=== PATIENT | female | born 1985 | race Caucasian/White ===

== ENCOUNTER → 2016-12-01 | Outpatient (CLI) | payer OTHER ==
[~2016-12-01] MED LIST: IBUP80TA PO; PRENTAB9 PO
[2016-12-01 19:56] LABS: ALKALINE PHOSPHATASE 44 U/L (45-117); ALT/SGPT 17 U/L (12-78); ANION GAP 8 MEQ/L (8-16); AST/SGOT 10 U/L (15-37); BILIRUBIN,TOTAL 0.8 MG/DL (0.2-1.0); BLOOD UREA NITROGEN 16 MG/DL (7-18); CALCIUM LEVEL 8.8 MG/DL (8.5-10.1); CARBON DIOXIDE LEVEL 27 MEQ/L (21-32); CHLORIDE LEVEL 109 MEQ/L (98-107); CHOLESTEROL LEVEL 200 MG/DL (<200); CREATININE FOR GFR 0.87 MG/DL (0.55-1.02); FREE T4 1.11 NG/DL (0.76-1.46); GLOMERULAR FILTRATION RATE > 60.0 (>60); GLUCOSE, FASTING 85 MG/DL (70-105); POTASSIUM SERUM 4.2 MEQ/L (3.5-5.1); SODIUM LEVEL 144 MEQ/L (136-145); TOTAL PROTEIN 6.5 GM/DL (6.4-8.2); TRIGLYCERIDES LEVEL 51 MG/DL (<150)
== END ==
LOC: M WUC 09:01
PROVIDERS: ATTEND Nurse Practitioner Family
DX: E03.9 Hypothyroidism, unspecified (principal); E78.4 Other hyperlipidemia

== ENCOUNTER → 2017-04-24 | Outpatient (CLI) | payer OTHER ==
[2017-04-24 19:58] LABS: THYROID PEROXIDASE ANTIBODY > 1300.0 U/ML (<60.0)
[2017-04-24 20:00] LABS: FREE T4 1.07 NG/DL (0.76-1.46)
== END ==
LOC: M WUC 15:38
PROVIDERS: ATTEND Nurse Practitioner Family
DX: E03.9 Hypothyroidism, unspecified (principal)

== ENCOUNTER → 2017-09-27 | Outpatient (CLI) | payer OTHER ==
[2017-09-27 18:16] LABS: ALBUMIN 4.3 GM/DL (3.2-5.2); ALBUMIN/GLOBULIN RATIO 1.34 (1.00-1.93); ALKALINE PHOSPHATASE 54 U/L (45-117); ALT/SGPT 26 U/L (12-78); ANION GAP 7 MEQ/L (8-16); AST/SGOT 22 U/L (7-37); BILIRUBIN,TOTAL 0.7 MG/DL (0.2-1.0); BLOOD UREA NITROGEN 11 MG/DL (7-18); CALCIUM LEVEL 9.3 MG/DL (8.5-10.1); CARBON DIOXIDE LEVEL 29 MEQ/L (21-32); CHLORIDE LEVEL 104 MEQ/L (98-107); CREATININE FOR GFR 0.86 MG/DL (0.55-1.02); FREE T4 1.15 NG/DL (0.76-1.46); GLOMERULAR FILTRATION RATE > 60.0 (>60); GLUCOSE, FASTING 82 MG/DL (70-105); SODIUM LEVEL 140 MEQ/L (136-145); TOTAL PROTEIN 7.5 GM/DL (6.4-8.2)
== END ==
LOC: M SMT 11:32
PROVIDERS: ATTEND Physician Assistant Medical
DX: E03.9 Hypothyroidism, unspecified (principal)

== ENCOUNTER → 2017-11-26 | Outpatient (CLI) | payer OTHER ==
[2017-11-26 20:56] LABS: FREE T4 1.08 NG/DL (0.76-1.46); THYROID STIMULATING HORMONE 0.789 uIU/ML (0.358-3.740)
== END ==
LOC: M LAB 17:24
DX: E03.9 Hypothyroidism, unspecified (principal)

== ENCOUNTER → 2018-01-18 | Outpatient (REF) | payer OTHER | LOC: M LAB REF 10:55 | DX: J02.9 Acute pharyngitis, unspecified (principal) | CPT/HCPCS: 87430 ==

== ENCOUNTER → 2019-01-23 | Outpatient (REF) | payer OTHER ==
[2019-01-23 16:56] LABS: BASO # 0.1 10^3/uL (0.0-0.2); BASO % 0.9 % (0.0-1.0); EOS # 0.2 10^3/uL (0.0-0.50); EOS % 3.7 % (0.0-3.0); HEMATOCRIT 37.5 % (36.0-47.0); HEMOGLOBIN 12.9 g/dl (12.0-15.5); LYMPH # 1.6 10^3/uL (1.5-4.5); LYMPH % 28.5 % (24.0-44.0); MEAN CORPUSCULAR HEMOGLOBIN 31.8 pg (27.0-33.0); MEAN CORPUSCULAR HGB CONC 34.4 g/dl (32.0-36.5); MEAN CORPUSCULAR VOLUME 92.4 fl (80.0-96.0); MONO # 0.4 10^3/uL (0.0-0.8); MONO % 6.9 % (0.0-5.0); NEUTROPHILS # 3.4 10^3/uL (1.8-7.7); NEUTROPHILS % 59.8 % (36.0-66.0); PLATELET COUNT, AUTOMATED 195 10^3/uL (150-450); RED BLOOD COUNT 4.06 10^6/uL (4.00-5.40); WHITE BLOOD COUNT 5.6 10^3/uL (4.0-10.0)
[2019-01-23 16:59] LABS: MONO REFLEX EBV COMP NEGATIVE (NEGATIVE)
[2019-01-23 17:08] LABS: ALBUMIN 3.9 GM/DL (3.2-5.2); ALT/SGPT 20 U/L (12-78); BILIRUBIN,TOTAL 0.7 MG/DL (0.2-1.0); BLOOD UREA NITROGEN 12 MG/DL (7-18); CALCIUM LEVEL 8.8 MG/DL (8.5-10.1); CARBON DIOXIDE LEVEL 26 MEQ/L (21-32); CHLORIDE LEVEL 107 MEQ/L (98-107); CREATININE FOR GFR 0.79 MG/DL (0.55-1.30); FREE T4 1.06 NG/DL (0.76-1.46); GLOMERULAR FILTRATION RATE > 60.0 (>60); GLUCOSE, FASTING 84 MG/DL (70-100); POTASSIUM SERUM 3.8 MEQ/L (3.5-5.1); SODIUM LEVEL 142 MEQ/L (136-145); TOTAL PROTEIN 6.7 GM/DL (6.4-8.2)
[2019-01-26 20:22] LABS: FREE T3 2.7 PG/ML (2.2-4.0)
[2019-01-27 00:07] LABS: EBV AB TO NUCLEAR ANTIGEN 70.6 U/mL (0.0-17.9); EBV VIRAL CAPSID AG IgG 81.3 U/mL (0.0-17.9); EBV VIRAL CAPSID AG IgM <36.0 U/mL (0.0-35.9)
== END ==
LOC: M LABDRAW1 15:43
PROVIDERS: ATTEND Family Medicine
DX: J02.9 Acute pharyngitis, unspecified (principal); E03.9 Hypothyroidism, unspecified

== ENCOUNTER → 2019-04-19 | Outpatient (REF) | payer OTHER | LOC: M LAB REF 10:19 | PROVIDERS: ATTEND Physician Assistant | DX: J02.9 Acute pharyngitis, unspecified (principal) ==

== ENCOUNTER 2019-05-26 08:43 | Inpatient (IN) | payer OTHER ==
[~2019-05-26] VITALS: Ht 160 cm; Wt 64.6 kg
[2019-05-26] MEDS ORDERED: diazePAM 5 MG TAB PO ONE ×2 (09:45→15:45)
[2019-05-26] MEDS ORDERED: GABAPENTIN 300 MG CAP PO ONE (09:45)
[2019-05-26] MEDS ORDERED: NORCO, ANEXSIA 5/325MG TABLET (HYDROcodone/ACETAMINOPHEN) PO ONE (17:45)
--- NOTE | 2019-05-26 17:47 | REP ---
MRI lumbar spine without contrast: History: Saddle anesthesia. Comparison CT study of the lumbar spine is from February 12, 2006. Technique: Sagittal and axial T1 and T2-weighted scans are acquired in the usual fashion with and without fat saturation. Sequences include spin echo, turbo spin-echo, and STIR imaging sequences. MRI findings: Lumbar vertebral body heights are preserved. Alignment is normal. As observed on this CT study, there is a unilateral spondylolysis on the right at L5 and the unilateral spondylolysis on the left at L4. This is unchanged from the comparison CT study in 2005. There is no evidence of spondylolisthesis. Pedicles and posterior elements are otherwise intact. The tip of the conus medullaris is normal in position and appearance at L1. No extra vertebral abnormality is observed. At the L1-2 intervertebral disc level, there is low T1, low T2 signal intensity within the L1-2 disc consistent with intervertebral disc calcification. There is a right posterior focal disc protrusion at L1-L2 with caudal extension. This compresses the right ventral margin of the thecal sac. The disc protrusion shows low T1 and low T2 signal intensity as well and may contain some calcification. This appears to be a new finding. At the L2-3 disc, there is no evidence of disc protrusion, central canal stenosis or neural foraminal narrowing. At L3-4, there is some degenerative narrowing of the disc and mild diffuse central disc bulging is seen indenting the ventral margin of the sac. No central canal stenosis is seen. No neural foraminal compromise is noted. At L4-5, there is no evidence of disc protrusion. There is mild facet hypertrophy, greatest on the right. No neural foraminal narrowing is seen. At L5-S1, there is degenerative narrowing of the disc and there are reactive marrow changes on either side of the degenerated L5-S1 disc. Mild diffuse disc bulging is present. There is no focal disc protrusion or central canal stenosis. Facet hypertrophy is noted bilaterally at L5-S1. Impression: 1. Right posterior focal disc protrusion with caudal extension at L1-L2. 2. Diffuse disc bulging at L3-4, mild in degree. 3. Unilateral right L5 and left L4 pars defects without spondylolisthesis. This is unchanged from the [address] study. 4. Degenerative disc disease with reactive marrow changes at the L5-S1. 5. No evidence of central canal stenosis or neural foraminal narrowing. Electronically Signed by Mario Bryan MD 05/26/2019 07:28 P
[2019-05-26] MEDS ORDERED: IBUP200T45 PO (19:45)
[2019-05-26] MEDS ORDERED: PRED20TA PO (19:45)
[2019-05-26] MEDS ORDERED: FLUO10CA15 PO (19:47)
[2019-05-26] MEDS ORDERED: NEUR100C PO (19:47)
[2019-05-26] MEDS ORDERED: LEVO88TA3 PO (19:47)
--- NOTE | 2019-05-26 20:54 | HPEPDOC ---
General Date of Admission 05.26.19 Date of Service: May 26, 2019 Chief Complaint The patient is a 33-year-old female admitted with a reason for visit of Leg Pain And Numbness. History of Present Illness 33f with hx of pcos, hypothyroid, remote eating disorder, who presents numbness. Two days ago she started noticing numbness and parasthesias on her left lateral thigh. This numbness then moved to her vagina, anus, and perineum. Yesterday she noticed the numbness had spread to include the entire posterior side of her right leg and all of her toes. She denies any weakness, fevers, weight loss, or incontinence. She has noted the feeling like she is not emptying her bladder when she voids and the sensation like she has to void, but then cant. She has trouble standing on her right leg as she describes no sensation of the floor at all. She recalls She injured her back several times in the past most recently a month ago. She was recently started on prozac for anxiety. She has no back pain currently. She denies any provoking factors and notes the symptoms have waxed and waned over the past two days seemingly better in the am and worse throughout the day. Home Medications Scheduled Fluoxetine Hcl (Fluoxetine HCl) 10 Mg Capsule, 10 MG PO QHS, (Reported) Gabapentin (Neurontin) 100 Mg Capsule, 100 MG PO QID, (Reported) PATIENT STATES SHE HAS NOT STARTED. RX STILL AT PHARMACY. Levothyroxine Sodium (Levothyroxine Sodium) 88 Mcg Tablet, 88 MCG PO DAILY, (Reported) 1/2 HOUR BEFORE BREAKFAST Prednisone (Prednisone) 20 Mg Tablet, 40 MG PO DAILY, (Reported) TO TAKE X 5 DAYS Scheduled PRN Ibuprofen (Ibu-200) 200 Mg Tablet, 400 MG PO Q6H PRN for PAIN, (Reported) Allergies Coded Allergies: Penicillins (Verified Allergy, Intermediate, HIVES, RASH, 05/26/19) SEASONAL ALLERGIES (Verified Allergy, Unknown, 09/29/09) Sulfa (Sulfonamide Antibiotics) (Verified Adverse Reaction, Mild, VOMITING, 05/26/19) TAPE (Verified Adverse Reaction, Mild, BANDAIDS-SENSITIVE, 05/26/19) Past Medical History Medical History hypothyroid, pcos Surgical History denies Family History Significant Family History: No pertinent family hx Social History * Smoker: Denies Alcohol: Denies Drugs: denies Psychosocial History: Anxiety A-FIB/CHADSVASC A-FIB History Current/History of A-Fib/PAF?: No Current PO Anticoag Therapy: No Age/Risk Factor Scoring CHADSVASC: CHADSVASC Response (Comments) Value Age Risk Factor Age < 65 years old 0 Gender Risk Factor Female 1 Hx of CHF No 0 Hx of HTN No 0 Hx of Stroke/TIA/or VTE No 0 Hx of Diabetes No 0 Hx of Vascular Disease No 0 Total 1 Review of Systems Constitutional: Denies: Chills, Fever, Night Sweats Eyes: Denies: Pain, Vision change ENT: Denies: Head Aches, Ear Pain, Dysphagia Skin: Denies: Rash, Lesions, Breakdown Pulmonary: Denies: Dyspnea, Cough Cardiovascular: Denies: Chest Pain, Palpitations, Orthopnea, Paroxysmal Noc. Dyspnea, Lt Headedness Gastrointestinal: Denies: Nausea, Vomiting, Abdominal Pain, Diarrhea Genitourinary: Reports: Other Symptoms (hesitation) Hematologic: Denies: Bruising, Bleeding Excessively Musculoskeletal: Denies: Neck Pain, Back Pain, Joint Pain, Muscle Pain, Spasms Neurological: Reports: Numbness Psych: Reports: Anxiety Physical Examination General Exam: Positive: Alert, No Acute Distress Eye Exam: Positive: PERRLA, Conjunctiva & lids normal, EOMI; Negative: Sclera icteric ENT Exam: Positive: Atraumatic, Mucous membr. moist/pink, Pharynx Normal Neck Exam: Positive: Supple; Negative: JVD, thyromegaly Chest Exam: Positive: Clear to auscultation, Normal air movement Heart Exam: Positive: Rate Normal, Regular Rhythm, Normal S1, Normal S2; Negative: Murmurs, Rubs Abdomen Exam: Positive: Normal bowel sounds, Soft; Negative: Tenderness, Hepatospenomegaly Extremity Exam: Positive: Normal pulses; Negative: Clubbing, Cyanosis, Edema Skin Exam: Positive: Nl turgor and temperature; Negative: Breakdown, Lesion Neuro Exam: Positive: Normal Gait, Normal Speech, Strength at 5/5 X4 ext, Normal Tone, Other (able to feel touch in right leg, foot, all toes, however decreased sensation, proprioception intact); Negative: Sensation Intact Psych Exam: Positive: Mental status NL, Mood NL, Oriented x 3 Other physical findings bladder scan 0 Vital Signs Vital Signs Date Time Temp Pulse Resp B/P (MAP) Pulse Ox O2 Delivery O2 Flow Rate FiO2 05/26/19 20:18 98.8 61 18 114/73 (87) 100 Room Air Laboratory Data Labs 24H Laboratory Tests 2 05/26/19 09:53: POC Beta HCG, Quantitative < 5.0 05/26/19 10:05: POC Glucose (Misc Panel) 104, POC Sodium (Misc Panel) 143, POC Potassium (Misc Panel) 3.8, POC Chloride (Misc Panel) 105, POC Total CO2 (Misc Panel) 25.0, POC Blood Urea Nitrogen (Misc Panel 10, POC Ionized Calcium (Misc Panel) 5.1, POC Creatinine (Misc Panel) 0.7, POC Hematocrit (Misc Panel) 42.0 Assessment/Plan 33f with saddle and leg anesthesia and paraesthesias Started on prednisone and neurontin yesterday will continue MRI without evidence of cauda equina does have evidence of degenerative disc disease Orthopedics consulted by ED neurochecks unclear etiology at this time if not felt to be disc related may need neuro work up for demyelinating disease anxiety continue prozac prn xanax hypothyroid stable continue synthroid Plan / VTE VTE Prophylaxis Ordered?: Yes ILDEFONSO MOTA MD May 26, 2019 20:54
[2019-05-26] MEDS: FLUoxetine 10 MG CAP PO SCH (21:30)
[2019-05-26] MEDS: GABAPENTIN 100 MG CAP PO SCH (21:30)
[2019-05-26 22:20] VITALS: BP 124/67
[2019-05-26] MEDS: ALPRAZolam 0.25 MG TAB PO PRN (23:15)
--- NOTE | 2019-05-26 23:33 | CR ---
DATE: 05/26/2019 CHIEF COMPLAINT: Back pain and thigh numbness. HISTORY OF PRESENT ILLNESS: This 33-year-old female has a 2-day history of increasing lower back pain and numbness. This feels like an odd sensation change in the feeling of her left upper thigh that started about 2 days ago. She does describe it as a numbness. She feels like she was "sitting on pool noodle" or at the edge of the pool, which she attributed this initially to her leg falling asleep. She feels like she took some time off, did not walk her dog as usual and then it got a little bit better. However, the next day, she did try to do more activities and feels like it got quite a bit worse to the point where it more in the right thigh numbness and associated with some numbness in her vaginal area. She also does describe an episode about 2 months ago where she hurt her lower back. She works as a teacher at [employer]. She feels like it got better over about a month, and she did have an adjustment by a DO. She has not had any loss of control of bowel or bladder, overflow urinary incontinence or inability to feel around her perianal region. She feels like there is a little bit of weakness and odd sensations to her right lower extremity now. Her upper extremities are strong and normal. She has not had any constitutional symptoms such as fever, chills, weight loss, sudden night sweats or any other problems with appetite or problems with other systems. PAST MEDICAL HISTORY: Includes: 1. Polycystic ovary syndrome (PCOS). 2. Hypothyroid. 3. Anxiety. MEDICATIONS: Include a recent course of prednisone, chronic, 88 mg, levothyroxine, fluoxetine 10 mg once daily, alprazolam 0.25 mg for anxiety. ALLERGIES: PENICILLIN, SEASONAL ALLERGIES, SULFA ANTIBIOTICS and TAPE. SURGICAL HISTORY: Nil. SOCIAL HISTORY: She works as a teacher at [employer]. She is a nonsmoker. She does consume alcohol, but she does not use street drugs. PHYSICAL EXAMINATION: Vital signs are stable. Temperature is 98.8. Blood pressure 114/73. Pulse rate 61. Respiratory rate 18. 100% on room air. She is alert and oriented times three. She is quite pleasant, easy to interact with. She is lying supine on the examining room bed. She is here with her significant other. Her upper extremities reveal no evidence of clonus. There is strong C5-T1 with normal sensations. Strength 5/5 in all nerve roots. Sensations are normal 2/2. Inspection of her thoracolumbar spine reveals no evidence of overlying redness, swelling, ecchymosis or deformity. There are no steps or gaps on palpation. Minimal pain to palpation in the midline or off either side on the spinal muscles. She had slight diffuse decreased strength in her right lower extremity 4+/5 from L2-S1. 5/5 on the left side L2-S1. Decreased sensation altered 1/2 from L2-S1 throughout the right lower extremity but normal in the left lower extremity. Negative straight leg raise test on both sides. Negative femoral nerve stretch test on the right side. Full hip range of motion. Strong pedal pulses. Plantars downgoing bilaterally. She did have 4 or 5 beats of clonus bilaterally. Reflexes a little brisk but overall 2+ and symmetric at the knees and ankles. Normal perianal sensation to light touch and pinprick. Normal rectal tone. Positive deep anal pressure. I had the emergency room physician toe closing machine tender during the examination. MRI was reviewed of her lumbar spine: This demonstrates at the L1-L2 intervertebral disc level right posterior focal disc protrusion with caudal extension. This compresses the right ventral margin of the cul-de-sac. This disc protrusion shows low T1 and low T2 signal intensity, may contain some calcification. This appears to be a new finding compared to a CT study of the lumbar spine from January 2006. There is also diffuse disc bulge at L3-L4, mild in degree. Unilateral right L5 and left L4 pars defects without spondylolisthesis, unchanged from 2006. There is degenerative disc disease, reactive marrow changes L5-S1. No evidence of central canal stenosis or neural foraminal narrowing. I see no evidence of a cord signal change. ASSESSMENT/PLAN: This 33-year-old female with right L1-L2 disc protrusion, which does appear to be causing some neurologic symptoms, right lower extremity. In the absence of cauda equina findings, treatment for this would be admit to the hospital under the semiconductor engineer with pain service consultation, probable pain control with gabapentin and Toradol if her renal function is normal. Office followup with a spine surgeon in 2-3 weeks. I reviewed this consult with Dr. Clark, the spine surgeon, and he agrees with the management. I also communicated the findings to the emergency room physician who was helping coordinate her care. We will monitor her neurologic status as well and help her mobilize appropriately.
[2019-05-27 06:00] VITALS: BP 117/67
[2019-05-27 06:12] LABS: BASO # 0.1 10^3/uL (0.0-0.2); BASO % 1.2 % (0.0-1.0); EOS # 0.3 10^3/uL (0.0-0.50); EOS % 4.3 % (0.0-3.0); HEMATOCRIT 39.6 % (36.0-47.0); HEMOGLOBIN 13.2 g/dl (12.0-15.5); LYMPH # 2.5 10^3/uL (1.5-4.5); LYMPH % 43.5 % (24.0-44.0); MEAN CORPUSCULAR HEMOGLOBIN 30.9 pg (27.0-33.0); MEAN CORPUSCULAR HGB CONC 33.3 g/dl (32.0-36.5); MEAN CORPUSCULAR VOLUME 92.7 fl (80.0-96.0); MONO # 0.3 10^3/uL (0.0-0.8); MONO % 5.7 % (0.0-5.0); NEUTROPHILS # 2.6 10^3/uL (1.8-7.7); NEUTROPHILS % 45.1 % (36.0-66.0); PLATELET COUNT, AUTOMATED 176 10^3/uL (150-450); RED BLOOD COUNT 4.27 10^6/uL (4.00-5.40); WHITE BLOOD COUNT 5.8 10^3/uL (4.0-10.0)
[2019-05-27 06:24] LABS: INR 1.08; PROTHROMBIN TIME 13.7 SECONDS (11.8-14.0)
[2019-05-27 06:25] LABS: PARTIAL THROMBOPLASTIN TIME 29.7 SECONDS (25.0-38.4)
[2019-05-27] MEDS: LEVOTHYROXINE 88MCG TABLET (0.088 MG) PO SCH (06:34)
[2019-05-27 06:56] LABS: ERYTHROCYTE SEDIMENTATION RATE 4 mm/hr (0-20)
[2019-05-27 07:00] LABS: ALBUMIN 3.7 GM/DL (3.2-5.2); ALT/SGPT 20 U/L (12-78); BILIRUBIN,TOTAL 1.1 MG/DL (0.2-1.0); BLOOD UREA NITROGEN 13 MG/DL (7-18); CALCIUM LEVEL 8.2 MG/DL (8.5-10.1); CARBON DIOXIDE LEVEL 29 MEQ/L (21-32); CHLORIDE LEVEL 106 MEQ/L (98-107); CREATININE FOR GFR 0.93 MG/DL (0.55-1.30); GLOMERULAR FILTRATION RATE > 60.0 (>60); GLUCOSE, FASTING 120 MG/DL (70-100); POTASSIUM SERUM 3.6 MEQ/L (3.5-5.1); SODIUM LEVEL 141 MEQ/L (136-145); TOTAL PROTEIN 6.4 GM/DL (6.4-8.2)
[2019-05-27 08:06] LABS: VITAMIN B12 LEVEL 676 PG/ML (247-911)
[2019-05-27] MEDS: predniSONE 20 MG TAB PO SCH (09:03)
[2019-05-27] MEDS: ENOXAPARIN 40 MG/0.4 ML SYRINGE (J1650) SC SCH (09:03)
[2019-05-27 09:05] LABS: C REACTIVE PROTEIN QUANTITATIV < 0.30 MG/DL (0.00-0.30); THYROID STIMULATING HORMONE 0.936 uIU/ML (0.358-3.740)
[2019-05-27] MEDS ORDERED: LORazepam 2 MG/ML VIAL (J2060) IV ONE (10:30)
--- NOTE | 2019-05-27 10:32 | IPNPDOC ---
Date Seen The patient was seen on 05/27/19. Progress Note SUBJECTIVE: Presenting with numbness Patient is a 33-year-old Female with PMHX of hypothyroidism, PCOS, Anxiety, remote eating disorder who presented to the ED with 2 days of numbness and parasthesias. She states that 2 days ago she noticed numbness and parasthesias on her left lateral thigh that spread to her vagina, anus, and perineal region. Yesterday she noticed numbness and a burning sensation to the entire posterior side of her right leg and extended into her toes. She has had trouble standing on her right leg because she is unable to feel the sensation of her foot touching the floor. She states that she has injured her back before in the past but most recently one month ago. She admits that the symptoms are better in the morning and have been waxing and waning over the last two days. She states that she has the urge to void at times but is unable to do so. The patient is examined at the bedside. Patient has an appetite and is eating her breakfast. She is physically upset and crying while providing the history. She denies having any episodes of incontinence, paralysis, or acute pain. Her right leg has decreased sensation that is most noted in the distal 1/2 of her calf and extending into her toes. OBJECTIVE PHYSICAL EXAMINATION: VITAL SIGNS: Please see below. GENERAL: Crying but cooperative and alert HEENT: PERRLA, EOMA, mucosal membranes pink and moist CARDIOVASCULAR: RRR, S1S2 normal. No murmurs, rubs, or gallops noted RESPIRATORY: Clear to auscultation ABDOMINAL: soft and nontender, normal bowel sounds. EXTREMITIES: Pulses 2+ throughout, no cyanosis or clubbing noted. NEUROLOGICAL: CNII-XII intact, muscle strength 4+/5 in RLE L2-S1. muscle strength 5+5 in LLE, RUE, and LUE. Reflexes 2+ B/L. H&P states normal rectal tone and perianal sensation. Pressure sensation and proprioception intact in both lower extremities. Light sensation absent in RLE from distal 1/2 of calf into toes. PSYCHOLOGICAL: AAOx3, anxious LABORATORY DATA, IMAGING STUDIES, MICROBIOLOGY: Please see below. Lumbar spine: Impression: 1. Right posterior focal disc protrusion with caudal extension at L1-L2. 2. Diffuse disc bulging at L3-4, mild in degree. 3. Unilateral right L5 and left L4 pars defects without spondylolisthesis. This is unchanged from the [address] study. 4. Degenerative disc disease with reactive marrow changes at the L5-S1. 5. No evidence of central canal stenosis or neural foraminal narrowing. DVT prophylaxis ordered?: Yes, TEDs and sequentials ASSESSMENT AND PLAN: This is a 33-year-old female with PMHX of hypothyroidism, PCOS, Anxiety, remote eating disorder. PROBLEMS: Numbness and parasthesias. Differential includes: Multiple sclerosis vs unlikely [place]illian [place] vs unlikely SLE vs compressive spinal cord lesions -MRI of Head and Neck; -Neurology has been consulted -Syphilis serology negative -HIV serology negative -Vitamin B12 levels are normal -Lyme titer, MAME serology, Plasma Copper are still pending -Post void residual recorded today Degenerative disc disease -Orthopedics has been consulted -Acetaminophen as needed for pain -prescribed prednisone and gabapentin- began both yesterday Anxiety -Patient was given 1 mg Ativan PCOS Remote eating disorder: -patient on regular diet Hypothyroidism c/w levothyroxine -TSH within normal limits DVT Prophylaxis: TEDs and Sequentials DISPOSITION: Patient is stable and anxious. A head/neck MRI has been scheduled. Neurology has been consulted. Lyme titer, MAME serology, Plasma Copper are still pending I saw and evaluated the patient. I agree with the findings and plan of care as documented in the resident's note VS, I&O, 24H, Fishbone Vital Signs/I&O Vital Signs Date Time Temp Pulse Resp B/P (MAP) Pulse Ox O2 Delivery O2 Flow Rate FiO2 05/27/19 06:00 97.9 63 17 117/67 (84) 99 05/26/19 22:10 Room Air I&O- Last 24 Hours up to 6 AM 05/27/19 06:00 Intake Total 360 ml Output Total 100 ml Balance 260 ml Laboratory Data 24H LABS Laboratory Tests 2 05/26/19 09:53: POC Beta HCG, Quantitative < 5.0 05/26/19 10:05: POC Glucose (Misc Panel) 104, POC Sodium (Misc Panel) 143, POC Potassium (Misc Panel) 3.8, POC Chloride (Misc Panel) 105, POC Total CO2 (Misc Panel) 25.0, POC Blood Urea Nitrogen (Misc Panel 10, POC Ionized Calcium (Misc Panel) 5.1, POC Creatinine (Misc Panel) 0.7, POC Hematocrit (Misc Panel) 42.0 05/27/19 06:00: Immature Granulocyte % (Auto) 0.2, White Blood Count 5.8, Red Blood Count 4.27, Hemoglobin 13.2, Hematocrit 39.6, Mean Corpuscular Volume 92.7, Mean Corpuscular Hemoglobin 30.9, Mean Corpuscular Hemoglobin Concent 33.3, Red Cell Distribution Width 12.9, Platelet Count 176, Neutrophils (%) (Auto) 45.1, Lymphocytes (%) (Auto) 43.5, Monocytes (%) (Auto) 5.7H, Eosinophils (%) (Auto) 4.3H, Basophils (%) (Auto) 1.2H, Neutrophils # (Auto) 2.6, Lymphocytes # (Auto) 2.5, Monocytes # (Auto) 0.3, Eosinophils # (Auto) 0.3, Basophils # (Auto) 0.1, Nucleated Red Blood Cells % (auto) 0.0, Erythrocyte Sedimentation Rate 4, Prothrombin Time 13.7, Prothromb Time International Ratio 1.08, Activated Partial Thromboplast Time 29.7, Anion Gap 6L, Glomerular Filtration Rate > 60.0, Blood Urea Nitrogen 13, Creatinine 0.93, Sodium Level 141, Potassium Level 3.6, Chloride Level 106, Carbon Dioxide Level 29, Calcium Level 8.2L, Aspartate Amino Transf (AST/SGOT) 15, Alanine Aminotransferase (ALT/SGPT) 20, Alkaline Phosphatase 38L, Total Bilirubin 1.1H, Total Protein 6.4, Albumin 3.7, C-Reactive Protein, Quantitative < 0.30, Albumin/Globulin Ratio 1.37, Vitamin B12 Level 676, Thyroid Stimulating Hormone (TSH) 0.936 05/27/19 09:17: CBC/BMP Laboratory Tests 05/27/19 06:00 Red Blood Count 4.27, Mean Corpuscular Volume 92.7, Mean Corpuscular Hemoglobin 30.9, Mean Corpuscular Hemoglobin Concent 33.3, Red Cell Distribution Width 12.9, Neutrophils (%) (Auto) 45.1, Lymphocytes (%) (Auto) 43.5, Monocytes (%) (Auto) 5.7 H, Eosinophils (%) (Auto) 4.3 H, Basophils (%) (Auto) 1.2 H, Neutrophils # (Auto) 2.6, Lymphocytes # (Auto) 2.5, Monocytes # (Auto) 0.3, Eosinophils # (Auto) 0.3, Basophils # (Auto) 0.1, Calcium Level 8.2 L, Aspartate Amino Transf (AST/SGOT) 15, Alanine Aminotransferase (ALT/SGPT) 20, Alkaline Phosphatase 38 L, Total Bilirubin 1.1 H, Total Protein 6.4, Albumin 3.7 KIM LINDSEY S-3 May 27, 2019 10:32 FELIZ BASILIO MD May 27, 2019 15:42
[2019-05-27 10:44] LABS: HIV 1&2 SCREEN CENTAUR NEGATIVE (NEGATIVE)
[2019-05-27] MEDS ORDERED: ACETAMINOPHEN TAB 650MG DOSE (2X325MG) PO PRN (11:15)
[2019-05-27] MEDS: ALPRAZolam 0.25 MG TAB PO PRN ×2 (11:53→20:54)
[2019-05-27 13:58] VITALS: BP 148/67
[2019-05-27 15:45] VITALS: BP 126/58
[2019-05-27] MEDS: GABAPENTIN 100 MG CAP PO SCH (20:54)
[2019-05-27] MEDS: FLUoxetine 10 MG CAP PO SCH (20:54)
[2019-05-27 22:00] VITALS: BP 121/65
[2019-05-27] MEDS ORDERED: PROHANCE 279.3MG/ML 15ML VIAL (A9576) As Ordered ONE (23:09)
--- NOTE | 2019-05-28 00:24 | REPVR ---
EXAM: MR Cervical Spine Without and With Contrast EXAM DATE/TIME: 05/27/2019 11:37 PM CLINICAL HISTORY: 33 years old, female; Numbness; Additional info: Saddle anesthesia, right leg numbness and weakness TECHNIQUE: Imaging protocol: Multiplanar magnetic resonance images of the cervical spine without and with intravenous contrast. Contrast material: PROHANCE; Contrast volume: 13 ml; Contrast route: LEFT A/C COMPARISON: No relevant prior studies available. FINDINGS: Normal vertebral alignment with no segmental subluxation. Vertebral body height, morphology and marrow signal are normal. No fracture or destructive process. Cervical cord is normal in morphology and signal. No FLAIR or T2 signal abnormality. No abnormal cervical cord enhancement or lesion Imaged structures within the posterior fossa are unremarkable. C2-3: No significant canal or foraminal stenosis. C3-4: No significant canal or foraminal stenosis. C4-5: Minimal disc bulge. No significant canal or foraminal stenosis. C5-6: Minimal disc bulge. No significant canal or foraminal stenosis. C6-7: No significant canal or foraminal stenosis. C7-T1: No significant canal or foraminal stenosis. No focal prevertebral soft tissue abnormality. IMPRESSION: Unremarkable pre-and post contrast MRI of the cervical spine. Electronically signed by: Meng Guzman On 05/28/2019 00:24:23 AM
--- NOTE | 2019-05-28 00:33 | REPVR ---
EXAM: MR Thoracic Spine Without and With Contrast EXAM DATE/TIME: 05/27/2019 11:37 PM CLINICAL HISTORY: 33 years old, female; Numbness; Additional info: Saddle anesthesia, right leg numbness and weakness TECHNIQUE: Imaging protocol: Multiplanar magnetic resonance images of the thoracic spine without and with intravenous contrast. Contrast material: PROHANCE; Contrast volume: 13 ml; Contrast route: LEFT A/C COMPARISON: No relevant prior studies available. FINDINGS: Posterior skin marker is present over the mid thoracic spine at the T7 level. Normal segmental thoracic vertebral alignment. Vertebral body height, morphology and marrow signal are normal. No acute fracture or destructive process. No abnormal osseous enhancement with gadolinium. Thoracic cord is normal in morphology and signal with no focal lesion. No abnormal cord enhancement. No extrinsic compression of the thoracic cord. Normal CSF signal surrounds the cord at all levels. Appropriate disc height and hydration for age. No abnormal disc or epidural enhancement with gadolinium No significant canal or foraminal stenosis at any level. No disc extrusion or significant protrusion. No focal prevertebral soft tissue swelling or mass. IMPRESSION: Unremarkable pre-and post IV contrast MRI of the thoracic spine for age. Electronically signed by: Meng Guzman On 05/28/2019 00:33:21 AM
[2019-05-28] MEDS: LEVOTHYROXINE 88MCG TABLET (0.088 MG) PO SCH (05:48)
[2019-05-28 06:00] VITALS: BP 140/80
--- NOTE | 2019-05-28 07:43 | CR ---
DATE OF CONSULTATION: 05/27/2019 REFERRING PHYSICIAN: Dr. Gregorio Gibbs. REASON FOR CONSULTATION: Pelvic, saddle anesthesia, right leg numbness and weakness. HISTORY OF PRESENT ILLNESS: Marina Garcia is a 33-year-old woman with history of remote eating disorder, polycystic ovarian syndrome, hypothyroidism, anxiety who was at her baseline state of health until Saturday night. The patient states that she had sexual intercourse and went to urinate and felt urinary hesitancy. She had to wait 30 seconds before she could urinate. She exercised more than usual on Saturday. Saturday afternoon around 3:30 p.m., when she was sitting on the side of the pool, she felt burning sensation on her skin around left hip in [id number] sized area. There was no redness or scrap or scratch on her skin. One or two hours later, she sat down again and felt that this burning sensation had moved to her saddle pelvic region. She went out for dinner around 6:00 p.m. She felt more numbness, tingling in her pelvis. They drove home around 7:30 p.m. and she felt burning sensation, numbness, tingling in the back of her right thigh and calf. They went to bed. She woke up and on Saturday morning felt numbness, tingling, burning sensation in her pelvis and right leg, in posterior part of her right thigh and calf. She did not think too much about it after she saw her primary care physician who gave her prednisone. She attended supporting events on Saturday. Saturday morning she had the same symptoms. She felt shooting pain going down her right leg. This pain would start in the right buttock area and would go down to her right leg. She felt her skin was over-sensitive. She could feel her hair follicles. Touching her hair would hurt her right leg. Pain in the right leg is 9/10 in intensity. She started feeling weakness in the right leg on Saturday. She spent 13 hours in the emergency department yesterday. She had difficulty bearing weight on her right leg. Pain in her right leg gets better by repositioning her body. She denies any lower back pain. She feels numbness, tingling of her right foot, toes, cadet, calf, pelvis and back of her right leg. She currently does not have any problems in her left leg. She denies any neurological complaints in the past. She denies any headaches, neck pain, back pain, dysphagia, dysarthria, diplopia or urinary incontinence, falls or loss of consciousness. She denies any loss of vision in past. She denies any pain in her eyes presently or in past. PAST MEDICAL HISTORY: Hypothyroidism. Polycystic ovarian syndrome. Remote eating disorder. Anxiety. SOCIAL HISTORY: She denies smoking, alcohol or illicit drugs. CURRENT MEDICATIONS: - Prozac 10 mg by mouth daily - gabapentin 1 mg by mouth four times a day - prednisone 20 mg, two tablets by mouth daily. - levothyroxine 88 mcg by mouth daily - ibuprofen 200 mg by mouth every 6 hours as needed. ALLERGIES: PENICILLIN, SULFA, and adhesive tape. FAMILY HISTORY: Noncontributory. REVIEW OF SYSTEMS: All systems were reviewed and found to be noncontributory except as mentioned in the history of present illness. PHYSICAL EXAMINATION: Temperature 98.8, pulse 61, respiratory rate 18, blood pressure 114/73, 100% saturation on room air. Heart: Regular rate and rhythm. Lungs: Clear to auscultation. Abdomen: Soft, nontender, nondistended. No pedal edema. No musculoskeletal abnormalities. No rash. No signs of meningeal irritation. She has no tremor or dysmetria. The patient is awake, alert, oriented to place, person and time. Normal speech comprehension and repetition. Extraocular muscles are intact. No facial weakness. Tongue and uvula are midline. 5/5 strength in bilateral upper extremities. 5/5 strength in left leg throughout. She appeared to have intermittent activation during strength testing of her right leg throughout. Her iliopsoas on right side was 4-/5 with intermittent activation. Right quadriceps and foot and toe dorsiflexes were 4+/5 with intermittent activation. Deep tendon flexes are 2+ in arms and left leg throughout. Right knee reflex was 1+ and ankle reflex was 2+. The patient is able to feel vibration touch and pinprick sensation. The patient states that she is hypersensitive during pinprick sensation in the right leg throughout. The patient stated it is more painful than left leg. Plantars were downgoing. At times I felt there was one beat of clonus at her ankle reflexes. Gait is unsteady. The patient appear to have difficulty bearing weight on her right leg. She swayed [id number] while testing Romberg sign although did not fall. She was unable to do tandem walking. Her an I were standing on opposite sides of her to prevent her from falling just in case. DIAGNOSTIC STUDIES: MRI scan of lumbosacral spine was reviewed and showed mild disc bulges at L1-2, L3-L4, L5-S1 levels with partial pars defects at the right L5 and left L4 levels. There is no spinal or foraminal stenosis. Her capital RPR is negative. Vitamin B12 level is 676. TSH 0.9. Beta SCG is less than 5.0. Total bilirubin was 1.1 and calcium 8.2 but otherwise normal CBC and CMP. Her HIV testing was negative. Her MAME, Lyme antibody, serum copper are pending. ESR and CRP are normal. ASSESSMENT: 1. Right leg numbness, weakness, paresthesia and dysesthesias with pelvic and saddle anesthesia. 2. There is concern for incomplete or unilateral transverse myelitis. 3. There is concern for demyelinating disease of brain and spinal cord. 4. Rule out that Devic's disease, Lyme and CMV polyradiculitis. LS Plexitis would not cause saddle or pelvic symptoms and she is already on Prednisone. Her ESR and CRP are completely normal. PLAN: 1. MRI brain, cervical and thoracic spine with and without contrast. 2. Check neuromyelitis optica (NMO) antibody although it can be done after MRI scans are available. 3. Consider high-dose steroids after above studies. Consider spinal Tap. 4. If above studies are unremarkable, we will repeat MRI scan of lumbar spine with contrast to rule out inflammatory process at the level of conus medullaris. 5. Physical and occupational therapy. 6. EMG nerve conduction study of right leg on outpatient basis as contingency plan to rule out piriformis syndrome on right side although it will never cause pelvic and saddle anesthesia. EMG/NCS can also help diagnose polyradiculitis from Lyme and CMV. MTDD
[2019-05-28] MEDS: predniSONE 20 MG TAB PO SCH (09:15)
[2019-05-28] MEDS: ENOXAPARIN 40 MG/0.4 ML SYRINGE (J1650) SC SCH (09:15)
--- NOTE | 2019-05-28 10:37 | IPNPDOC ---
Date Seen The patient was seen on 05/28/19. Progress Note SUBJECTIVE: Patient is a 33-year-old Female with PMHX of hypothyroidism, PCOS, Anxiety, remote eating disorder who presented to the ED with 2 days of numbness and paresthesias. She states that 2 days ago she noticed numbness and parasthesias on her left lateral thigh that spread to her vagina, anus, and perineal region. Yesterday she noticed numbness and a burning sensation to the entire posterior side of her right leg and extended into her toes. She has had trouble standing on her right leg because she is unable to feel the sensation of her foot touching the floor. She states that she has injured her back before in the past but most recently one month ago. She admits that the symptoms are better in the morning and have been waxing and waning over the last two days. She states that she has the urge to void at times but is unable to do so. The patient is examined at bedside and accompanied by her family. She is in a pleasant mood but concerned about her physical diagnosis. She denies having any episodes of incontinence, acute pain, or paralysis. She admits to experiencing hyperalgesia extending from the distal 1/2 of right calf into toes only on the outer circumference of the leg; the inside of her leg feels completely numb. She states that it is difficult to describe the pain but that it is worse in the RLE than the LLE. Patient is physically tired and states that she had the head/ neck MRI late yesterday evening. The patient and her family are anxious for a definitive diagnosis and plan for the next step of action. OBJECTIVE PHYSICAL EXAMINATION: VITAL SIGNS: Please see below. GENERAL: Cooperative and alert HEENT: PERRLA, EOMA, mucosal membranes pink and moist CARDIOVASCULAR: RRR, S1S2 normal. No murmurs, rubs, or gallops noted RESPIRATORY: Clear to auscultation ABDOMINAL: soft and nontender, normal bowel sounds. EXTREMITIES: Pulses 2+ throughout, no cyanosis or clubbing noted. Full range of motion noted bilaterally NEUROLOGICAL: CNII-XII intact, muscle strength 4+/5 in RLE L2-S1. muscle strength 5+5 in LLE, RUE, and LUE. Reflexes: Right knee reflex was 1+, all other reflexes 2+. H&P states normal rectal tone and perianal sensation. Pressure sensation and proprioception intact in both lower extremities. Light sensation absent in RLE from distal 1/2 of calf into toes. PSYCHOLOGICAL: AAOx3 LABORATORY DATA, IMAGING STUDIES, MICROBIOLOGY: Please see below. Cervical spine MRI 05/27/19: Unremarkable pre-and post contrast MRI of the cervical spine. Thoracic spine MRI 05/27/19: Unremarkable pre-and post IV contrast MRI of the thoracic spine for age. Lumbar spine MRI 05/26/19: 1. Right posterior focal disc protrusion with caudal extension at L1-L2. 2. Diffuse disc bulging at L3-4, mild in degree. 3. Unilateral right L5 and left L4 pars defects without spondylolisthesis. This is unchanged from the [address] study. 4. Degenerative disc disease with reactive marrow changes at the L5-S1. 5. No evidence of central canal stenosis or neural foraminal narrowing. DVT prophylaxis ordered?: Yes, Lovenox ASSESSMENT AND PLAN: This is a 33-year-old female with PMHX of hypothyroidism, PCOS, Anxiety, remote eating disorder. PROBLEMS: Numbness and parasthesias. Differential includes: Partial transverse myelitis vs multiple sclerosis vs unlikely Guillian [place] vs unlikely SLE vs compressive spinal cord lesions -MRI of Brain, cervical spine, thoracic spine, and lumbar spine ordered 05/27/19 -Neurology has been consulted: Dr. Dalal -Syphilis serology and HIV serology negative -Vitamin B12 levels are normal -Lyme titer, MAME serology, Plasma Copper, SSa/Ro antibody, SSb/La antibody, Neuromyelitis optic IgG are pending -Post void residual being monitored -Patient scheduled for PT and OT -Repeat lumbar MRI ordered to r/o inflammatory process of conus medullaris -Spinal tap ordered Degenerative disc disease -Orthopedics has been consulted -Acetaminophen as needed for pain -prescribed prednisone and gabapentin- began both yesterday -Office follow up with a spine surgeon in 2-3 weeks Anxiety -Patient was given 1 mg Ativan yesterday to help with anxiety -Patient shows improvement in mood this am PCOS Remote eating disorder: -patient on regular diet Hypothyroidism c/w levothyroxine -TSH within normal limits DVT Prophylaxis -c/w lovenox DISPOSITION: Patient is stable and cooperative. Waiting on brain MRI, repeat lumbar MRI, and spinal tap results. Lyme titer, AMME serology, Plasma Copper, SSa/Ro antibody, SSb/La antibody, Neuromyelitis optic IgG are pending. Input from Neurology is appreciated. I saw and evaluated the patient. I agree with the findings and plan of care as documented in the above note VS, I&O, 24H, Fishbone Vital Signs/I&O Vital Signs Date Time Temp Pulse Resp B/P (MAP) Pulse Ox O2 Delivery O2 Flow Rate FiO2 05/28/19 06:00 97.2 69 16 140/80 (100) 100 05/26/19 22:10 Room Air I&O- Last 24 Hours up to 6 AM 05/28/19 06:00 Intake Total 1240 ml Output Total 2050 ml Balance -810 ml Laboratory Data 24H LABS Laboratory Tests 2 05/28/19 05:38: KIM LINDSEY S-3 May 28, 2019 10:37 FELIZ BASILIO MD May 29, 2019 13:23
[2019-05-28] MEDS: ALPRAZolam 0.25 MG TAB PO PRN ×2 (11:26→20:28)
[2019-05-28] MEDS ORDERED: MOM 30ML SUSPENSION UDC PO ONE (13:45)
[2019-05-28] MEDS ORDERED: DOCUSATE SODIUM 100 MG CAP PO PRN (13:45)
[2019-05-28 14:00] VITALS: BP 123/76
[2019-05-28 14:22] LABS: ANTINUCLEAR ANTIBODIES DIRECT Negative (Negative)
[2019-05-28] MEDS: FLUoxetine 10 MG CAP PO SCH (20:28)
[2019-05-28] MEDS: GABAPENTIN 300 MG CAP PO SCH (20:28)
[2019-05-28] MEDS ORDERED: PROHANCE 279.3MG/ML 15ML VIAL (A9576) As Ordered ONE (20:45)
[2019-05-28 22:00] VITALS: BP 114/58
[2019-05-29 00:06] LABS: Lyme Disease IgG/IgM Antibodie <0.91 ISR (0.00-0.90); Lyme Disease IgM Ab Quantitati <0.80 index (0.00-0.79)
[2019-05-29 06:00] VITALS: BP 100/58
[2019-05-29] MEDS: LEVOTHYROXINE 88MCG TABLET (0.088 MG) PO SCH (06:31)
--- NOTE | 2019-05-29 08:54 | REP ---
MRI lumbar spine with IV contrast: History: Right leg numbness and saddle anesthesia. Comparison is made with the noncontrast MRI study from May 26, 2019. This showed a small right L1-2 disc protrusion and unilateral pars defects at the L4 and L5. Degenerative disc disease was present at the L5-S1 and L1-2. Technique: Postcontrast enhanced and fat sat T1 sagittal and T1 axial images are acquired. The gadolinium enhancement dose is 13 ml of intravenous ProHance. MRI findings: There is no abnormal gadolinium enhancement in the distal thoracic spinal cord, conus, or cauda equina. There is mild enhancement around the caudally extruded right posterior disc protrusion at L1-2. No other abnormal gadolinium enhancement is appreciated. No abnormal marrow enhancement is seen. Impression: Caudally extruded small right posterior L1-2 disc protrusion shows some peripheral contrast enhancement. No other abnormal contrast enhancement is seen. Electronically Signed by Mario Bryan MD 05/29/2019 08:45 A
[2019-05-29 10:00] VITALS: BP 119/80
[2019-05-29] MEDS: GABAPENTIN 300 MG CAP PO SCH (10:00)
[2019-05-29] MEDS: predniSONE 20 MG TAB PO SCH (10:01)
[2019-05-29 10:15] LABS: APPEARANCE, CSF CLEAR (CLEAR); COLOR, CSF COLORLESS (COLORLESS); CSF TUBE# CELL CNT TUBE 1
[2019-05-29 10:45] LABS: CSF TUBE# GLU TUBE 2; CSF TUBE# TP TUBE 2; GLUCOSE CSF 55 MG/DL (40-75); TOTAL PROTEIN,CSF 16 MG/DL (15-45)
--- NOTE | 2019-05-29 12:52 | REP ---
Procedure: Fluoro guidance for lumbar puncture. History: Paresthesia/weakness The procedure was performed under the direct supervision of Dr. Bryan. The risks and benefits of the procedure were explained to the patient and informed consent was obtained. The L3-4 interspace was localized using fluoroscopic guidance. The skin was prepped and draped in a sterile fashion. 1% lidocaine was used as a local anesthetic. Using fluoroscopic guidance a 22-gauge spinal needle was inserted and advanced into the thecal sac. 12 ml of spinal fluid was withdrawn and sent to lab. The patient tolerated the procedure well and there were no immediate complications. Less than 6 seconds of fluoro time was utilized for this procedure. Reviewed by VALENTIN Alvarado 05/29/2019 09:43 A Electronically Signed by Mario Bryan MD 05/29/2019 12:43 P
[2019-05-29] MEDS ORDERED: GABA-843 PO (13:42)
[2019-05-29] MEDS ORDERED: PRED20TA PO (13:42)
[2019-05-29 14:00] VITALS: BP 109/67
--- NOTE | 2019-05-29 16:20 | DS.PDOC ---
Discharge Summary General Date of Admission May 26, 2019 at 20:15 Date of Discharge 05/29/19 Attending Physician: FELIZ BASILIO MD Specialist/Consultants Involve: DERRICK DALAL MD Specialist/Consultants Involve Broderick Duarte MD Discharge Summary PROCEDURES PERFORMED DURING STAY: Fluoroscopy guidance for lumbar puncture 05/29/19 ADMITTING DIAGNOSES: 1. numbness and paresthesias of undetermined origin DISCHARGE DIAGNOSES: 1. Numbness and paresthesias of undetermined origin 2. Lumbar Disc Herniation With Radiculopathy 3. Anxiety 4. PCOS 5. Hypothyroidism 6. Remote eating disorder COMPLICATIONS/CHIEF COMPLAINT: numbness and paresthesias HISTORY OF PRESENT ILLNESS: Patient is a 33-year-old Female with PMHX of hypothyroidism, PCOS, Anxiety, remote eating disorder who presented to the ED with 2 days of numbness and paresthesias. She states that 2 days ago she noticed numbness and parasthesias on her left lateral thigh that spread to her vagina, anus, and perineal region. Yesterday she noticed numbness and a burning sensation to the entire posterior side of her right leg and extended into her toes. She has had trouble standing on her right leg because she is unable to feel the sensation of her foot touching the floor. She states that she has injured her back before in the past but most recently one month ago. She admits that the symptoms are better in the morning and have been waxing and waning over the last two days. She states that she has the urge to void at times but is unable to do so. HOSPITAL COURSE: Orthopedics was consulted by ED who determined that patient has a degenerative disc disease. Neurology was consulted. She underwent cervical, thoracic, and lumbar MRIs. A repeat MRI was ordered to look for an inflammatory mechanism located at the level of the conus medullaris. The MRI results were unremarkable with the exception of the posterior focal disc protrusion with caudal extension at L1-L2 was found on Lumbar MRI. Her imaging results are below. Syphilis serology, Lyme disease IgG/IgM, HIV ag/ab, MAME screen, plasma copper, TSH, and Vit B12 were all within normal limits. A lumbar puncture was performed and CSF morphology was normal. Patient cleared with PT and admitted improvement in sensation loss. At this time no further emergent inpatient testing indicated, stable for further outpatient follow up with Dr. Dalal of neurology i.e. EMG/NCS DISCHARGE MEDICATIONS: Please see below. ALLERGIES: Please see below. PHYSICAL EXAMINATION ON DISCHARGE: VITAL SIGNS: Please see below. GENERAL: patient is alert and cooperative HEENT: NC AT, mucous membranes moist and pink, PERRLA, EOMI NECK: No jvd noted, supple CARDIOVASCULAR EXAMINATION: RRR, Normal S1S2, no murmurs, gallops, rubs appreciated RESPIRATORY EXAMINATION: Clear to auscultation bilaterally, no wheezes, rales, or rhonchi heard ABDOMINAL EXAMINATION: soft, nontender to palpation, normal bowel sounds EXTREMITIES: NEUROLOGICAL EXAMINATION: CNII-XII intact, Strength 5/5 throughout with exception of RLE which is 4+/5. Decreased sensation on distal 1/2 of right foot that extends into toes. Patient cleared with PT. PSYCHIATRIC EXAMINATION: Normal affect LABORATORY DATA: Please see below. IMAGIN. Cervical spine MRI 05/27/19: Unremarkable pre-and post contrast MRI of the cervical spine. 2. Thoracic spine MRI 05/27/19: Unremarkable pre-and post IV contrast MRI of the thoracic spine for age. 3.Lumbar spine MRI 05/26/19: 1. Right posterior focal disc protrusion with caudal extension at L1-L2. 2. Diffuse disc bulging at L3-4, mild in degree. 3. Unilateral right L5 and left L4 pars defects without spondylolisthesis. This is unchanged from the [address] study. 4. Degenerative disc disease with reactive marrow changes at the L5-S1. 5. No evidence of central canal stenosis or neural foraminal narrowing. 4. Lumbar spine MRI 05/28/19: Caudally extruded small right posterior L1-2 disc protrusion shows some peripheral contrast enhancement. No other abnormal contrast enhancement is seen. PROGNOSIS: Good ACTIVITY: As tolerated, DIET: As tolerated DISPOSITION: The patient is being discharged home. We attempted to transfer her to [facility] but they were full and unable to take a transfer at this time. DISCHARGE INSTRUCTIONS: 1. Follow up outpatient EMG with Dr. Dalal. 2. Continue outpatient physical therapy 3. Return to ER if symptoms worsen or for emergency 4. Dr. Dalal recommends c/w prednisone and gabapentin ITEMS TO FOLLOWUP ON OUTPATIENT: 1. Dr. Lechuga 06/03 at 11:30 ([phone]) 2. Referral with Neuro for EMG 06/01 at 3:00pm DISCHARGE CONDITION: Stable I saw and evaluated the patient. I agree with the findings and plan of care as documented in the above note Vital Signs/I&Os Vital Signs Date Time Temp Pulse Resp B/P (MAP) Pulse Ox O2 Delivery O2 Flow Rate FiO2 05/29/19 14:00 97.2 78 18 109/67 (81) 98 05/26/19 22:10 Room Air I&O- Last 24 Hours up to 6 AM 05/29/19 05:59 Intake Total 960 ml Output Total 1250 ml Balance -290 ml Laboratory Data Labs 24H Laboratory Tests 2 05/29/19 06:07: 05/29/19 09:30: CSF Appearance CLEAR, CSF Color COLORLESS, CSF WBC (Auto) 2, CSF RBC (Auto) < 2, CSF Glucose (Tube 1) TUBE 2, CSF Total Protein (Tube 1) TUBE 2, CSF Cell Count Tube # TUBE 1, CSF Polynuclear WBCs (%) , CSF Glucose 55, CSF Total Protein 16 Microbiology Microbiology 05/29/19 Viral Culture, Received Pending 05/29/19 Gram Stain - Final, Resulted 05/29/19 CSF Culture, Resulted Pending 05/29/19 - Final, Complete Discharge Medications Scheduled Fluoxetine Hcl (Fluoxetine HCl) 10 Mg Capsule, 10 MG PO QHS, (Reported) Gabapentin (Gabapentin) 300 Mg Capsule, 300 MG PO BID Levothyroxine Sodium (Levothyroxine Sodium) 88 Mcg Tablet, 88 MCG PO DAILY, (Reported) 1/2 HOUR BEFORE BREAKFAST Prednisone (Prednisone) 20 Mg Tablet, 1 TAB PO DAILY Scheduled PRN Ibuprofen (Ibu-200) 200 Mg Tablet, 400 MG PO Q6H PRN for PAIN, (Reported) Allergies Coded Allergies: Penicillins (Verified Allergy, Intermediate, HIVES, RASH, 05/26/19) SEASONAL ALLERGIES (Verified Allergy, Unknown, 09/29/09) Sulfa (Sulfonamide Antibiotics) (Verified Adverse Reaction, Mild, VOMITING, 05/26/19) TAPE (Verified Adverse Reaction, Mild, BANDAIDS-SENSITIVE, 05/26/19) KIM LINDSEY S-3 May 29, 2019 16:20 FELIZ BASILIO MD May 29, 2019 16:50
--- NOTE | 2019-06-01 13:37 | REP ---
MRI brain without and with IV contrast: History: Saddle anesthesia, right leg numbness, paresthesias, question demyelination. . Comparison study: No comparison brain imaging. Technique: Axial and sagittal imaging planes are utilized for T1 and T2-weighted scans. Sequences include spin-echo, fast spin echo, FLAIR, and diffusion weighted sequences. Gadolinium enhancement dose is 12.8 L of intravenous ProHance. MRI findings: No bony calvarial lesion is seen. Craniocervical junction and upper cervical cord are normal in appearance. There is no MR evidence of significant paranasal sinus disease. No intraorbital abnormality is seen. The lateral, third, and fourth ventricles are normal in size and position. Luna-white differentiation pattern is intact above and below the tentorium. There is no evidence of intracranial hemorrhage. No mass, infarction, extra-axial fluid collection or midline shift is seen. No abnormal white matter lesion is seen. No abnormal gadolinium enhancement is appreciated. Impression: Negative brain MRI study without and with IV contrast. Electronically Signed by Mario Bryan MD 05/28/2019 08:23 A
[2019-06-02 00:06] LABS: SSA SJOGRENS A <0.2 AI (0.0-0.9); SSB SJOGRENS B <0.2 AI (0.0-0.9)
[2019-06-02 00:06] LABS: IMMUNOGLOBULIN G CSF 1.3 mg/dL (0.0-8.6)
[2019-06-03 08:05] LABS: VITAMIN B1 LEVEL WHOLE BLOOD 99.2 nmol/L (66.5-200.0); VITAMIN E(ALPHA TOCOPHEROL) 11.4 mg/L (5.9-19.4)
[2019-06-05 10:30] LABS: OLIGOCLONAL BANDS, CSF Oligoclonal Bands (No Bands)
== END 2019-05-29 15:30 | disposition home or self-care (01) | DRG 552 ==
LOC: M ED 08:43 → M ED INP 20:15 → M MS4PR 22:40 → M MSPAV 05-27 15:21
PROVIDERS: ADMIT Hospitalist; ATTEND Internal Medicine
PROC: 009U3ZX Drainage of Spinal Canal, Percutaneous Approach, Diagnostic (ICD-10-PCS; principal; 2019-05-29)
DX: M51.16 Intervertebral disc disorders with radiculopathy, lumbar region (principal); E03.9 Hypothyroidism, unspecified; E28.2 Polycystic ovarian syndrome; J30.2 Other seasonal allergic rhinitis; R20.0 Anesthesia of skin; F41.9 Anxiety disorder, unspecified; Z79.899 Other long term (current) drug therapy; Z88.0 Allergy status to penicillin; Z88.2 Allergy status to sulfonamides; Z91.048 Other nonmedicinal substance allergy status

== ENCOUNTER → 2019-06-17 | Outpatient (RCR) | payer OTHER ==
[~2019-06-17] MED LIST changes: +FLUO10CA8 PO; +GABA-843 PO; +IBUP200T45 PO; +LEVO88TA3 PO; +NEUR100C PO; +PRED20TA PO
== END ==
LOC: M PT 06-01 09:15
PROVIDERS: ATTEND Family Medicine
DX: Z51.89 Encounter for other specified aftercare (principal); R26.89 Other abnormalities of gait and mobility

== ENCOUNTER 2019-06-24 08:30 | Outpatient (RCR) | payer OTHER | END 2019-07-18 | LOC: M PT 08:30 | PROVIDERS: ATTEND Family Medicine | DX: Z51.89 Encounter for other specified aftercare (principal); R26.89 Other abnormalities of gait and mobility ==

== ENCOUNTER → 2019-07-25 | Outpatient (CLI) | payer OTHER ==
--- NOTE | 2019-07-25 10:19 | REP ---
Clinical: Cough . Comparison: None . Technique: PA and lateral. Findings: The mediastinum and cardiac silhouette are normal. The lung hollins are clear and without acute consolidation, effusion, or pneumothorax. The skeletal structures are intact and normal. Impression: 1. No acute cardiopulmonary process. Electronically Signed by Velasquez Handy MD 07/25/2019 10:11 A
== END ==
LOC: M RAD 09:41
PROVIDERS: ATTEND Nurse Practitioner Family
DX: R05 Cough (principal)

== ENCOUNTER → 2021-04-25 | Outpatient (CLI) | payer OTHER ==
[~2021-04-25] MED LIST changes: +FLUO10CA16 PO; -FLUO10CA8 PO; +GABA-282 PO; -GABA-843 PO
[2021-04-25 07:16] LABS: BASO # 0.1 10^3/uL (0.0-0.2); BASO % 1.9 % (0.0-1.0); EOS # 0.2 10^3/uL (0.0-0.5); EOS % 3.9 % (0.0-3.0); HEMATOCRIT 38.7 % (36.0-47.0); HEMOGLOBIN 12.6 g/dl (12.0-15.5); LYMPH # 1.9 10^3/uL (1.5-5.0); LYMPH % 39.6 % (24.0-44.0); MEAN CORPUSCULAR HEMOGLOBIN 30.8 pg (27.0-33.0); MEAN CORPUSCULAR HGB CONC 32.6 g/dl (32.0-36.5); MEAN CORPUSCULAR VOLUME 94.6 fl (80.0-96.0); MONO # 0.4 10^3/uL (0.0-0.8); MONO % 8.5 % (2.0-8.0); NEUTROPHILS # 2.2 10^3/uL (1.5-8.5); NEUTROPHILS % 45.9 % (36.0-66.0); PLATELET COUNT, AUTOMATED 203 10^3/uL (150-450); RED BLOOD COUNT 4.09 10^6/uL (4.00-5.40); WHITE BLOOD COUNT 4.9 10^3/uL (4.0-10.0)
[2021-04-25 07:45] LABS: ALBUMIN 3.9 GM/DL (3.2-5.2); ALT/SGPT 20 U/L (12-78); BILIRUBIN,TOTAL 0.9 MG/DL (0.2-1.0); BLOOD UREA NITROGEN 14 MG/DL (7-18); CALCIUM LEVEL 9.2 MG/DL (8.5-10.1); CARBON DIOXIDE LEVEL 29 MEQ/L (21-32); CHLORIDE LEVEL 107 MEQ/L (98-107); CHOLESTEROL LEVEL 215 MG/DL (<200); CHOLESTEROL RISK RATIO 2.945 (<5); CREATININE FOR GFR 0.84 MG/DL (0.55-1.30); FREE T4 0.88 NG/DL (0.76-1.46); GLOMERULAR FILTRATION RATE > 60.0 (>60); GLUCOSE, FASTING 85 MG/DL (70-100); HDL CHOLESTEROL 73 MG/DL (>40); LDL CHOLESTEROL 129 MG/DL (<100); NON-HDL-C 142 MG/DL; SODIUM LEVEL 142 MEQ/L (136-145); TOTAL PROTEIN 6.7 GM/DL (6.4-8.2); TRIGLYCERIDES LEVEL 67 MG/DL (<150)
[2021-04-25 08:29] LABS: TOTAL 25(OH) VITAMIN D 24.3 NG/ML (30.0-100.0)
== END ==
LOC: M LAB 06:14
PROVIDERS: ATTEND Physician Assistant
DX: E03.9 Hypothyroidism, unspecified (principal); Z13.220 Encounter for screening for lipoid disorders

== ENCOUNTER → 2021-10-23 | Outpatient (CLI) | payer OTHER ==
[~2021-10-23] MED LIST changes: -IBUP200T45 PO; +IBUP200T46 PO
[2021-10-23 15:35] LABS: BASO % 0.1 % (0.0-1.0); EOSINOPHIL,TOTAL CALCULATED 0 mm3 (0-740); HEMATOCRIT 37.9 % (36.0-47.0); HEMOGLOBIN 12.7 g/dl (12.0-15.5); LYMPH # 0.8 10^3/uL (1.5-5.0); LYMPH % 10.5 % (24.0-44.0); MEAN CORPUSCULAR HEMOGLOBIN 30.9 pg (27.0-33.0); MEAN CORPUSCULAR HGB CONC 33.5 g/dl (32.0-36.5); MEAN CORPUSCULAR VOLUME 92.2 fl (80.0-96.0); MONO # 0.1 10^3/uL (0.0-0.8); MONO % 1.1 % (2.0-8.0); NEUTROPHILS # 6.3 10^3/uL (1.5-8.5); NEUTROPHILS % 87.9 % (36.0-66.0); PLATELET COUNT, AUTOMATED 236 10^3/uL (150-450); RED BLOOD COUNT 4.11 10^6/uL (4.00-5.40); WHITE BLOOD COUNT 7.2 10^3/uL (4.0-10.0)
[2021-10-23 16:09] LABS: ALBUMIN 3.8 GM/DL (3.2-5.2); ALT/SGPT 18 U/L (12-78); BILIRUBIN,TOTAL 0.6 MG/DL (0.2-1.0); BLOOD UREA NITROGEN 12 MG/DL (7-18); CALCIUM LEVEL 9.1 MG/DL (8.5-10.1); CARBON DIOXIDE LEVEL 26 MEQ/L (21-32); CHLORIDE LEVEL 107 MEQ/L (98-107); CREATININE FOR GFR 0.94 MG/DL (0.55-1.30); GLOMERULAR FILTRATION RATE > 60.0 (>60); GLUCOSE, FASTING 219 MG/DL (70-100); IMMUNOGLOBULIN A 97.7 MG/DL (70-400); IMMUNOGLOBULIN G 849 MG/DL (681-1648); POTASSIUM SERUM 3.6 MEQ/L (3.5-5.1); SODIUM LEVEL 141 MEQ/L (136-145); TOTAL PROTEIN 6.7 GM/DL (6.4-8.2)
== END ==
LOC: M PLALAB 13:40
PROVIDERS: ATTEND Family Medicine
DX: L50.1 Idiopathic urticaria (principal)

== ENCOUNTER → 2021-11-07 | Outpatient (CLI) | payer OTHER ==
[2021-11-07 07:29] LABS: HEMOGLOBIN A1c 4.9 %
[2021-11-07 07:41] LABS: BLOOD UREA NITROGEN 16 MG/DL (7-18); CALCIUM LEVEL 9.3 MG/DL (8.5-10.1); CARBON DIOXIDE LEVEL 29 MEQ/L (21-32); CHLORIDE LEVEL 108 MEQ/L (98-107); CREATININE FOR GFR 0.84 MG/DL (0.55-1.30); GLOMERULAR FILTRATION RATE > 60.0 (>60); GLUCOSE, FASTING 88 MG/DL (70-100); POTASSIUM SERUM 3.9 MEQ/L (3.5-5.1); SODIUM LEVEL 141 MEQ/L (136-145)
== END ==
LOC: M LAB 06:26
PROVIDERS: ATTEND Family Medicine
DX: R73.9 Hyperglycemia, unspecified (principal)

== ENCOUNTER → 2022-10-16 | Outpatient (CLI) | payer OTHER ==
[~2022-10-16] MED LIST changes: -FLUO10CA16 PO; +FLUO10CA18 PO
[2022-10-16 08:36] LABS: BASO # 0.1 10^3/uL (0.0-0.2); BASO % 1.6 % (0.0-1.0); EOS # 0.2 10^3/uL (0.0-0.5); EOS % 3.6 % (0.0-3.0); HEMATOCRIT 38.8 % (36.0-47.0); HEMOGLOBIN 12.5 g/dl (12.0-15.5); LYMPH # 1.4 10^3/uL (1.5-5.0); LYMPH % 28.4 % (24.0-44.0); MEAN CORPUSCULAR HEMOGLOBIN 30.8 pg (27.0-33.0); MEAN CORPUSCULAR HGB CONC 32.2 g/dl (32.0-36.5); MEAN CORPUSCULAR VOLUME 95.6 fl (80.0-96.0); MONO # 0.4 10^3/uL (0.0-0.8); MONO % 7.1 % (2.0-8.0); NEUTROPHILS % 59.1 % (36.0-66.0); PLATELET COUNT, AUTOMATED 216 10^3/uL (150-450); RED BLOOD COUNT 4.06 10^6/uL (4.00-5.40)
[2022-10-16 09:06] LABS: CHLORIDE LEVEL 105 MMOL/L (98-107); SODIUM LEVEL 143 MMOL/L (136-145)
[2022-10-16 09:07] LABS: ALBUMIN 3.9 G/DL (3.2-5.2); CARBON DIOXIDE LEVEL 29 MMOL/L (20-31)
[2022-10-16 09:12] LABS: BLOOD UREA NITROGEN 12 MG/DL (9-23); TRIGLYCERIDES LEVEL 65 MG/DL (<150)
[2022-10-16 09:13] LABS: ALKALINE PHOSPHATASE 39 U/L (46-116); BILIRUBIN,TOTAL 0.9 MG/DL (0.3-1.2); CALCIUM LEVEL 9.1 MG/DL (8.5-10.1); GLUCOSE, FASTING 91 MG/DL (60-100)
[2022-10-16 09:14] LABS: ALT/SGPT 14 U/L (7.0-40); AST/SGOT 18 U/L (<34); THYROID STIMULATING HORMONE 1.296 uIU/ML (0.55-4.78); TOTAL 25(OH) VITAMIN D 29.4 NG/ML (20.0-100.0); TOTAL PROTEIN 6.2 G/DL (5.7-8.2)
[2022-10-16 09:15] LABS: CHOLESTEROL LEVEL 207 MG/DL (<200); CHOLESTEROL RISK RATIO 3.11 (<5); CREATININE FOR GFR 0.75 MG/DL (0.55-1.30); FREE T4 1.08 NG/DL (0.89-1.76); GLOMERULAR FILTRATION RATE > 60.0 (>60); HDL CHOLESTEROL 66.5 MG/DL (>40); LDL CHOLESTEROL 127.5 MG/DL (<100); NON-HDL-C 141 MG/DL
== END ==
LOC: M LAB 07:42
PROVIDERS: ATTEND Family Medicine
DX: E03.9 Hypothyroidism, unspecified (principal)

== ENCOUNTER 2023-02-04 20:08 | Emergency (ER) | payer OTHER ==
[~2023-02-04] VITALS: Ht 160 cm; Wt 62.0 kg
[2023-02-04 22:05] LABS: BASO # 0.1 10^3/uL (0.0-0.2); BASO % 0.9 % (0.0-1.0); EOS # 0.2 10^3/uL (0.0-0.5); EOS % 2.6 % (0.0-3.0); HEMATOCRIT 40.1 % (36.0-47.0); HEMOGLOBIN 13.2 g/dl (12.0-15.5); LYMPH # 2.3 10^3/uL (1.5-5.0); LYMPH % 26.8 % (24.0-44.0); MEAN CORPUSCULAR HEMOGLOBIN 30.8 pg (27.0-33.0); MEAN CORPUSCULAR HGB CONC 32.9 g/dl (32.0-36.5); MEAN CORPUSCULAR VOLUME 93.5 fl (80.0-96.0); MONO # 0.6 10^3/uL (0.0-0.8); MONO % 6.6 % (2.0-8.0); NEUTROPHILS # 5.3 10^3/uL (1.5-8.5); NEUTROPHILS % 62.9 % (36.0-66.0); PLATELET COUNT, AUTOMATED 216 10^3/uL (150-450); RED BLOOD COUNT 4.29 10^6/uL (4.00-5.40); WHITE BLOOD COUNT 8.5 10^3/uL (4.0-10.0)
[2023-02-04 22:21] LABS: INR 0.94; PROTHROMBIN TIME 12.8 SECONDS (12.5-14.5)
[2023-02-04 22:22] LABS: PARTIAL THROMBOPLASTIN TIME 29.4 SECONDS (24.8-34.2)
[2023-02-04 22:27] LABS: LIPASE 47 U/L (12-53)
[2023-02-04 22:29] LABS: CPK CREATINE PHOSPHOKINASE 93 U/L (34-145)
[2023-02-04 22:33] LABS: ALBUMIN 4.2 G/DL (3.2-5.2); ALKALINE PHOSPHATASE 63 U/L (46-116); ALT/SGPT 21 U/L (7.0-40); AST/SGOT 24 U/L (<34); BILIRUBIN,DIRECT 0.1 MG/DL (<0.4); BILIRUBIN,TOTAL 0.5 MG/DL (0.3-1.2); BLOOD UREA NITROGEN 16 MG/DL (9-23); CALCIUM LEVEL 8.6 MG/DL (8.5-10.1); CARBON DIOXIDE LEVEL 28 MMOL/L (20-31); CHLORIDE LEVEL 106 MMOL/L (98-107); CK-MB VALUE MASS < 1.0 NG/ML (<3.6); CREATININE FOR GFR 0.87 MG/DL (0.55-1.30); GLOMERULAR FILTRATION RATE > 60.0 (>60); GLUCOSE, FASTING 84 MG/DL (60-100); HCG, SERUM QUALITATIVE NEGATIVE (NEGATIVE); MB/CK RELATIVE INDEX 1.07 (< OR =4); SODIUM LEVEL 139 MMOL/L (136-145); THYROID STIMULATING HORMONE 2.721 uIU/ML (0.55-4.78); TOTAL PROTEIN 6.8 G/DL (5.7-8.2)
[2023-02-04 22:38] LABS: RSV AMPLIFICATION NEGATIVE (NEGATIVE)
[2023-02-04 23:28] LABS: CK-MB VALUE MASS < 1.0 NG/ML (<3.6)
[2023-02-04 23:29] LABS: CPK CREATINE PHOSPHOKINASE 86 U/L (34-145); MB/CK RELATIVE INDEX 1.16 (< OR =4)
[2023-02-05] MEDS ORDERED: KETOROLAC 30 MG/ML 1ML VIAL IV ONE (00:25)
[2023-02-05] MEDS ORDERED: ISOVUE-370 76% 100ML VIAL As Ordered ONE (00:28)
[2023-02-05] MEDS ORDERED: IBUP-1022 PO (02:08)
[2023-02-05 02:14] VITALS: BP 124/82
== END 2023-02-05 02:16 | disposition home or self-care (01) ==
LOC: M ED 20:08
DX: R09.1 Pleurisy (principal); J90 Pleural effusion, not elsewhere classified; R07.89 Other chest pain; R51.9 Headache, unspecified; F41.9 Anxiety disorder, unspecified
CPT/HCPCS: 71046; 71275; 80048; 80076; 82550; 82553; 83690; 83880; 84443; 84484; 84703; 85025; 85610; 85730; 87631; 93005; 96374; 99284; J1885; Q9967

== ENCOUNTER → 2023-03-13 | Outpatient (CLI) | payer OTHER ==
[~2023-03-13] MED LIST changes: +IBUP-1022 PO
== END ==
LOC: M PLAIMG 07:58
PROVIDERS: ATTEND Physician Assistant
DX: J90 Pleural effusion, not elsewhere classified (principal)

== ENCOUNTER → 2023-12-30 | Outpatient (CLI) | payer OTHER ==
[2023-12-30 06:50] LABS: BASO # 0.1 10^3/uL (0.0-0.2); BASO % 1.8 % (0.0-1.0); EOS # 0.3 10^3/uL (0.0-0.5); EOS % 4.6 % (0.0-3.0); HEMATOCRIT 37.5 % (36.0-47.0); HEMOGLOBIN 12.6 g/dl (12.0-15.5); LYMPH # 1.9 10^3/uL (1.5-5.0); LYMPH % 35.4 % (24.0-44.0); MEAN CORPUSCULAR HGB CONC 33.6 g/dl (32.0-36.5); MEAN CORPUSCULAR VOLUME 92.1 fl (80.0-96.0); MONO # 0.4 10^3/uL (0.0-0.8); MONO % 7.7 % (2.0-8.0); NEUTROPHILS # 2.7 10^3/uL (1.5-8.5); NEUTROPHILS % 50.3 % (36.0-66.0); PLATELET COUNT, AUTOMATED 201 10^3/uL (150-450); RED BLOOD COUNT 4.07 10^6/uL (4.00-5.40); WHITE BLOOD COUNT 5.4 10^3/uL (4.0-10.0)
[2023-12-30 07:20] LABS: ALBUMIN 3.7 G/DL (3.2-5.2); ALKALINE PHOSPHATASE 48 U/L (46-116); ALT/SGPT 20 U/L (7.0-40); AST/SGOT 23 U/L (<34); BILIRUBIN,TOTAL 0.6 MG/DL (0.3-1.2); BLOOD UREA NITROGEN 14 MG/DL (9-23); CALCIUM LEVEL 8.9 MG/DL (8.5-10.1); CARBON DIOXIDE LEVEL 27 MMOL/L (20-31); CHLORIDE LEVEL 107 MMOL/L (98-107); CREATININE FOR GFR 0.76 MG/DL (0.55-1.30); GLOMERULAR FILTRATION RATE > 60.0 (>58); GLUCOSE, FASTING 84 MG/DL (60-100); POTASSIUM SERUM 4.1 MMOL/L (3.5-5.1); SODIUM LEVEL 140 MMOL/L (136-145); TOTAL PROTEIN 6.1 G/DL (5.7-8.2)
[2023-12-30 07:23] LABS: TOTAL 25(OH) VITAMIN D 27.7 NG/ML (20.0-100.0)
[2023-12-30 07:24] LABS: FREE T4 1.21 NG/DL (0.89-1.76); THYROID STIMULATING HORMONE 1.217 uIU/ML (0.55-4.78)
== END ==
LOC: M LAB 06:15
PROVIDERS: ATTEND Physician Assistant
DX: E03.9 Hypothyroidism, unspecified (principal); Z79.899 Other long term (current) drug therapy

== ENCOUNTER → 2025-01-05 | Outpatient (CLI) | payer OTHER ==
[~2025-01-05] MED LIST changes: +FLUO-290 PO; -FLUO10CA18 PO; +GABA-1172 PO; -GABA-282 PO
[2025-01-05 07:48] LABS: BASO # 0.1 10^3/uL (0.0-0.2); BASO % 1.9 % (0.0-1.0); EOS # 0.2 10^3/uL (0.0-0.5); EOS % 3.9 % (0.0-3.0); HEMATOCRIT 39.3 % (36.0-47.0); HEMOGLOBIN 13.4 g/dl (12.0-15.5); LYMPH # 1.8 10^3/uL (1.5-5.0); LYMPH % 35.7 % (24.0-44.0); MEAN CORPUSCULAR HEMOGLOBIN 31.7 pg (27.0-33.0); MEAN CORPUSCULAR HGB CONC 34.1 g/dl (32.0-36.5); MEAN CORPUSCULAR VOLUME 92.9 fl (80.0-96.0); MONO # 0.3 10^3/uL (0.0-0.8); MONO % 6.6 % (2.0-8.0); NEUTROPHILS # 2.7 10^3/uL (1.5-8.5); NEUTROPHILS % 51.9 % (36.0-66.0); PLATELET COUNT, AUTOMATED 200 10^3/uL (150-450); RED BLOOD COUNT 4.23 10^6/uL (4.00-5.40); WHITE BLOOD COUNT 5.2 10^3/uL (4.0-10.0)
[2025-01-05 08:13] LABS: ALBUMIN 3.8 G/DL (3.2-5.2); ALKALINE PHOSPHATASE 41 U/L (35-104); ALT/SGPT 14 U/L (7.0-40); AST/SGOT 13 U/L (<34); BILIRUBIN,TOTAL 1.3 MG/DL (0.3-1.2); BLOOD UREA NITROGEN 10 MG/DL (9-23); CARBON DIOXIDE LEVEL 28 MMOL/L (20-31); CHLORIDE LEVEL 109 MMOL/L (98-107); CHOLESTEROL LEVEL 236 MG/DL (<200); CHOLESTEROL RISK RATIO 3.12 (<5); CREATININE FOR GFR 0.85 MG/DL (0.55-1.30); GLOMERULAR FILTRATION RATE > 60.0 (>58); GLUCOSE, FASTING 94 MG/DL (60-100); HDL CHOLESTEROL 75.6 MG/DL (>40); LDL CHOLESTEROL 141.6 MG/DL (<100); NON-HDL-C 160.4 MG/DL; POTASSIUM SERUM 4.1 MMOL/L (3.5-5.1); SODIUM LEVEL 143 MMOL/L (136-145); TOTAL PROTEIN 6.6 G/DL (5.7-8.2); TRIGLYCERIDES LEVEL 94 MG/DL (<150)
[2025-01-05 08:14] LABS: FREE T4 1.33 NG/DL (0.89-1.76); THYROID STIMULATING HORMONE 0.458 uIU/ML (0.55-4.78); TOTAL 25(OH) VITAMIN D 36.1 NG/ML (20.0-100.0)
== END ==
LOC: M LAB 07:15
PROVIDERS: ATTEND Physician Assistant
DX: E78.00 Pure hypercholesterolemia, unspecified (principal); E55.9 Vitamin D deficiency, unspecified; E03.9 Hypothyroidism, unspecified; J30.9 Allergic rhinitis, unspecified